=== PATIENT | male | born 2000 | race African-American/Black ===

== ENCOUNTER 2021-08-23 17:01 | Emergency (ER) | payer MEDICAID ==
[2021-08-23 18:51] LABS: Appearance CLEAR (CLEAR)
[2021-08-23 18:52] LABS: Bilirubin NEGATIVE (NEGATIVE); Dipstick done @ ? MAIN LAB; Glucose NEGATIVE (NEGATIVE); Ketones NEGATIVE (NEGATIVE); Nitrite NEGATIVE (NEGATIVE); Ph 5.5 (5-6); Protein,Urine Dip NEGATIVE (Negative); RBC NEGATIVE Ery/ul (0-5); Specific Gravity 1.025 (1.005-1.025); Urobilinogen 0.2 mg/dL (0-1)
[2021-08-23 18:53] LABS: Mucus SLIGHT /HPF (NEGATIVE)
[2021-08-23 18:54] LABS: Urine Cultured Indicated? NO
--- NOTE | 2021-08-23 19:48 | ERPHSYRPT ---
- History of Present Illness Time Seen by Provider: 08/23/21 17:55 Historian: patient Patient Subjective Stated Complaint: PT STATES HE HAS LOWER ABDOMINAL PRESSURE, CRAMPING. PT STATES HE HAS HAD DIARRHEA. PT HAD CT SCAN DONE AND LABS DONE AT [facility] LAST NIGHT. Triage Nursing Assessment: PT AMBULATORY, A&OX4. SKIN PWD. Physician History: Patient is a 20-year-old male presents to emergency department for evaluation of abdominal cramping. Patient was at [facility] yesterday for the same. Patient was diagnosed with epiploic appendagitis. Patient was discharged home with antispasmodic and Toradol. Patient states the pain is worse. No trauma. No fever. No nausea vomiting or diaphoresis. Symptoms are progressiv e. Symptoms are moderate in intensity. Palpation reproduces symptoms. No testicular pain. No penile discharge. Patient is otherwise healthy. He denies a history of the same. Patient voices no other complaints or concerns at this time. Timing/Duration: day(s) (3 days) Activities at Onset: none Quality: aching Abdominal Pain Onset Location: RUQ Pain Radiation: no radiation Severity of Pain-Max: moderate Severity of Pain-Current: mild Modifying Factors: Improves With: other (Pain worse with palpation and movement) Associated Symptoms: denies symptoms Previous symptoms: no prior history Allergies/Adverse Reactions: amphetamine [From Adderall] Adverse Reaction (Intermediate, Verified 08/23/21 17:58) Vomiting dextroamphetamine [From Adderall] Adverse Reaction (Intermediate, Verified 08/23/21 17:58) Vomiting Home Medications: Hyoscyamine Sulfate 0.125 mg [Anaspaz 0.125 mg] 1 tab PO DAILY 08/23/21 [History] Ketorolac Trometh 10 mg Tab [TORAdol 10 MG TABLET] 10 mg PO DAILY 08/23/21 [History] Hx Tetanus, Diphtheria Vaccination/Date Given: Yes Hx Influenza Vaccination/Date Given: No Hx Pneumococcal Vaccination/Date Given: No Immunizations Up to Date: Yes Travel Risk - International Travel Have you traveled outside of the country in past 3 weeks: No - Coronavirus Screening Are you exhibiting any of the following symptoms?: No Close contact with a COVID-19 positive Pt in past 14-21 Days: No - Vaccine Status Have you recieved a Covid-19 vaccination: Yes Band Builder: Moderna - Vaccination Dates Date of 2cond Vaccination (if applicable): UNK - Review of Systems Constitutional: No Symptoms, No Fever, No Chills Eyes: No Symptoms Ears, Nose, & Throat: No Symptoms Respiratory: No Symptoms, No Cough, No Dyspnea Cardiac: No Symptoms, No Chest Pain, No Edema, No Syncope Abdominal/Gastrointestinal: No Symptoms, No Abdominal Pain, No Nausea, No Vomiting, No Diarrhea Genitourinary Symptoms: No Symptoms, No Dysuria Musculoskeletal: No Symptoms, No Back Pain, No Neck Pain Skin: No Symptoms, No Rash Neurological: No Symptoms, No Dizziness, No Focal Weakness, No Sensory Changes Psychological: No Symptoms Endocrine: No Symptoms Hematologic/Lymphatic: No Symptoms Immunological/Allergic: No Symptoms All Other Systems: Reviewed and Negative - Past Medical History Pertinent Past Medical History: No Cardiac History: Other - Past Surgical History Past Surgical History: Yes Gastrointestinal: Appendectomy - Social History Smoking Status: Current every day smoker Exposure to second hand smoke: Yes Drug Use: marijuana Patient Lives Alone: No - Nursing Vital Signs Nursing Vital Signs: Initial Vital Signs Temperature 97.8 F 08/23/21 17:47 Pulse Rate 76 08/23/21 17:47 Respiratory Rate 18 08/23/21 17:47 Blood Pressure 115/61 08/23/21 17:47 O2 Sat by Pulse Oximetry 95 08/23/21 17:47 Pain Scale Pain Intensity 4 - Physical Exam General Appearance: no apparent distress, alert Eye Exam: PERRL/EOMI, eyes nml inspection Ears, Nose, Throat Exam: normal ENT inspection, pharynx normal, moist mucous membranes Neck Exam: normal inspection, non-tender, supple, full range of motion Respiratory Exam: normal breath sounds, lungs clear, airway intact, No respiratory distress Cardiovascular Exam: regular rate/rhythm, normal heart sounds, normal peripheral pulses Gastrointestinal/Abdomen Exam: soft, normal bowel sounds, No tenderness, No mass Back Exam: normal inspection, normal range of motion, No CVA tenderness, No vertebral tenderness Extremity Exam: normal inspection, normal range of motion, pelvis stable Neurologic Exam: alert, oriented x 3, cooperative, normal mood/affect, nml cerebellar function, sensation nml, No motor deficits Skin Exam: normal color, warm, dry Lymphatic Exam: No adenopathy SpO2 Interpretation: normal SpO2: 99 O2 Delivery: Room Air - Course Nursing assessment & vital signs reviewed: Yes - CT Exams Abdomen/Pelvis CT Interpretation: Tele-radiologist Report (No comps. CT performed at [facility] today. Results not available. Minimal diverticulitis. Otherwise negative CT abdomen pelvis.) Ordered Tests: Active Orders 24 hr Category Date Time Status IV Insertion STAT Care 08/23/21 19:51 Active ABDOMEN AND PELVIS W/0 CONTRAS [CT] Stat Exams 08/23/21 19:52 Taken CBC W DIFF Stat Lab 08/23/21 20:09 Completed CMP Stat Lab 08/23/21 20:09 Completed UA W/RFX CULTURE Stat Lab 08/23/21 18:23 Completed Medication Summary Generic Name Dose Route Start Last Admin Trade Name Freq PRN Reason Stop Dose Admin Metronidazole 500 mg in 100 mls @ 200 mls/hr 08/23/21 22:14 Flagyl 500 Mg Ivpb IV 08/23/21 22:43 STAT STA Levofloxacin/Dextrose 500 mg in 100 mls @ 100 mls/hr 08/23/21 22:14 Levofloxacin 500mg/100ml D5w IV 08/23/21 23:13 STAT STA Discontinued Medications Generic Name Dose Route Start Last Admin Trade Name Freq PRN Reason Stop Dose Admin Sodium Chloride 1,000 mls @ 999 mls/hr 08/23/21 19:51 08/23/21 21:20 Sodium Chloride 0.9% 1000 Ml IV 08/23/21 20:51 Infused .Q1H1M STA Infusion Sodium Chloride Confirm 08/23/21 19:58 Sodium Chloride 0.9% 1000 Ml Administered 08/23/21 19:59 Dose 1,000 mls @ ud .ROUTE .STK-MED ONE Morphine Sulfate 4 mg 08/23/21 19:51 08/23/21 19:59 Morphine Sulfate 4 Mg/Ml Injection IV 08/23/21 19:52 4 mg STAT ONE Administration Morphine Sulfate Confirm 08/23/21 19:57 Morphine Sulfate 4 Mg/Ml Injection Administered 08/23/21 19:58 Dose 4 mg .ROUTE .STK-MED ONE Ondansetron HCl 4 mg 08/23/21 19:51 08/23/21 19:59 Ondansetron Hcl 4 Mg/2 Ml Vial IV 08/23/21 19:52 4 mg STAT ONE Administration Ondansetron HCl Confirm 08/23/21 19:57 Ondansetron Hcl 4 Mg/2 Ml Vial Administered 08/23/21 19:58 Dose 4 mg .ROUTE .K-MED ONE Lab/Rad Data: Laboratory Result Diagrams 08/23/21 20:09 08/23/21 20:09 Laboratory Results 08/23/21 08/23/21 08/23/21 Range/Units 20:09 20:09 18:23 WBC 11.1 H (4.0-10.5) x10^3/uL RBC 4.97 (4.1-5.6) x10^6/uL Hgb 14.5 (12.5-18.0) g/dL Hct 44.9 (42-50) % MCV 90.3 (78-100) fL MCH 29.2 (26-32) pg MCHC 32.3 (32-36) g/dL RDW 12.7 (11.5-14.0) % Plt Count 260 (150-450) x10^3/uL MPV 9.3 (7.5-11.0) fL Gran % 64.0 (36.0-66.0) % Immature Gran % (Auto) 0.4 (0.00-0.4) % Nucleat RBC Rel Count 0.0 (0.00-0.1) % Eos # (Auto) 0.46 (0-0.5) x10^3/uL Immature Gran # (Auto) 0.04 H (0.00-0.03) x10^3u/L Absolute Lymphs (auto) 2.57 (1.0-4.6) x10^3/uL Absolute Monos (auto) 0.85 (0.0-1.3) x10^3/uL Absolute Nucleated RBC 0.00 (0.00-0.01) x10^3u/L Lymphocytes % 23.2 L (24.0-44.0) % Monocytes % 7.7 (0.0-12.0) % Eosinophils % 4.2 (0.00-5.0) % Basophils % 0.5 (0.0-0.4) % Absolute Granulocytes 7.11 H (1.4-6.9) x10^3/uL Basophils # 0.05 (0-0.4) x10^3/uL Sodium 140 (137-145) mmol/L Potassium 4.7 (3.5-5.1) mmol/L Chloride 107 (98-107) mmol/L Carbon Dioxide 28 (22-30) mmol/L Anion Gap 10.4 (5-15) MEQ/L BUN 18 (9-20) mg/dL Creatinine 1.00 (0.66-1.25) mg/dL Estimated GFR > 60.0 ML/MIN Glucose 86 (74-106) mg/dL Calcium 9.0 (8.4-10.2) mg/dL Total Bilirubin 0.70 (0.2-1.3) mg/dL AST 27 (17-59) U/L ALT 19 (0-50) U/L Alkaline Phosphatase 74 (38-126) U/L Serum Total Protein 7.3 (6.3-8.2) g/dL Albumin 4.3 (3.5-5.0) g/dL Urinalys Dipstick Clnc MAIN LAB Urine Color YELLOW (YELLOW) Urine Appearance CLEAR (CLEAR) Urine pH 5.5 (5-6) Ur Specific [place] 1.025 (1.005-1.025) POC Urine Protein Conf NEGATIVE (Negative) Urine Ketones NEGATIVE (NEGATIVE) Urine Nitrite NEGATIVE (NEGATIVE) Urine Bilirubin NEGATIVE (NEGATIVE) Urine Urobilinogen 0.2 (0-1) mg/dL Urine Leukocytes NEGATIVE (NEGATIVE) Urine WBC (Auto) NONE (0-5) /HPF Urine RBC (Auto) NONE (0-2) /HPF U Epithel Cells (Auto) NONE (FEW) /HPF Urine Bacteria (Auto) NONE (NEGATIVE) /HPF Urine RBC NEGATIVE (0-5) Manolo/ul Urine Mucus (Auto) SLIGHT (NEGATIVE) /HPF Ur Culture Indicated? NO Urine Glucose NEGATIVE (NEGATIVE) mg/dL - Progress Progress: improved Progress Note: Patient reassessed. Pain significantly improved after morphine. Patient states the pain is returning. Second dose of morphine administered. CT abdomen pelvis reveals mild diverticulitis. Otherwise negative CT abdomen pelvis. Patient received a dose of Levaquin and Flagyl in our ED. A prescription for Cipro and Flagyl was forwarded to patient's pharmacy. Patient agrees to follow- up with his nurse practitioner or Dr. Islas within 48 hours for evaluation. Significant other at bedside. They voiced no other complaints or concerns at this time. \Portions of this note were created with voice recognition technology. There may be grammatical, spelling, punctuation or sound alike errors 08/23/21 22:24 Counseled pt/family regarding: lab results, diagnosis, need for follow-up, rad results - Departure Departure Disposition: Home Clinical Impression: Diverticulitis Condition: Stable Critical Care Time: No Referrals: DOCTOR,NO FAMILY [Primary Care Provider] - Follow up/PCP as directed TOM ISLAS MD [ACTIVE STAFF] - Follow up/PCP as directed Additional Instructions: Discharge/Care Plan EUGENIE SIMONS was seen on 08/23/21 in the Emergency Room. The patient was counseled regarding Diagnosis,Lab results, Imaging studies, need for follow up and when to return to the Emergency Room. Prescriptions given: Discharge Note I have spoken with the patient and/or caregivers. I have explained the patient's condition, diagnosis and treatment plan based on the information available to me at this time. I have answered the patient's and/or caregiver's questions and addressed any concerns. The patient and/or caregivers have as good understanding of the patient's diagnosis, condition and treatment plan as can be expected at this point. The vital signs have been stable. The patient's condition is stable and appropriate for discharge from the emergency department. The patient will pursue further outpatient evaluation with the primary care physician or other designated or consulting physician as outlined in the discharge instructions. The patient and/or caregivers are agreeable to this plan of care and follow-up instructions have been explained in detail. The patient and/or caregivers have received these instruction. The patient/and or caregivers are aware that any significant change in condition or worsening of symptoms should prompt an immediate return to this or the closest emergency department or call 911. Prescriptions: Ciprofloxacin [Cipro 500 MG] 500 mg PO BID 7 Days #14 tablet Metronidazole 500 mg [Flagyl 500 MG] 500 mg PO TID 5 Days #15 tablet
[2021-08-23] MEDS ORDERED: Zofran 4 MG/2 ML VIAL IV ONE (19:51)
[2021-08-23] MEDS ORDERED: MORPHINE SULFATE 4 MG INJ IV ONE ×2 (19:51→22:19)
[2021-08-23] MEDS ORDERED: Sodium Chloride 0.9% 1000 ML 1,000 ML IV STA (19:51)
[2021-08-23] MEDS ORDERED: Zofran 4 MG/2 ML VIAL ONE (19:57)
[2021-08-23] MEDS ORDERED: MORPHINE SULFATE 4 MG INJ ONE ×2 (19:57→22:22)
[2021-08-23] MEDS ORDERED: Sodium Chloride 0.9% 1000 ML 1,000 ML ONE (19:58)
[2021-08-23 20:12] LABS: Absolute Neutrophil Ct (ANC) 7.11 x10^3/uL (1.4-6.9); Basophil (Absolute #) 0.05 x10^3/uL (0-0.4); Eosinophil % 4.2 % (0.00-5.0); Eosinophil (Absolute #) 0.46 x10^3/uL (0-0.5); Hematocrit 44.9 % (42-50); Hemoglobin 14.5 g/dL (12.5-18.0); Lymphocyte (Absolute #) 2.57 x10^3/uL (1.0-4.6); Lymphocytes % 23.2 % (24.0-44.0); Mean Cell Volume 90.3 fL (78-100); Mean Corpuscular Hemoglobin 29.2 pg (26-32); Mean Corpuscular Hgb Concent. 32.3 g/dL (32-36); Mean Platelet Volume 9.3 fL (7.5-11.0); Monocyte (Absolute #) 0.85 x10^3/uL (0.0-1.3); Monocytes % 7.7 % (0.0-12.0); Platelet Count 260 x10^3/uL (150-450); Red Blood Count 4.97 x10^6/uL (4.1-5.6); Red Cell Distribution Width 12.7 % (11.5-14.0); White Blood Count 11.1 x10^3/uL (4.0-10.5)
[2021-08-23 20:25] LABS: ALBUMIN 4.3 g/dL (3.5-5.0); ALKALINE PHOSPHATASE 74 U/L (38-126); ANION GAP 10.4 MEQ/L (5-15); BLOOD UREA NITROGEN 18 mg/dL (9-20); CHLORIDE 107 mmol/L (98-107); Carbon Dioxide 28 mmol/L (22-30); EST GLOMERULAR FILTRATION RATE > 60.0 ML/MIN; Glucose 86 mg/dL (74-106); Potassium 4.7 mmol/L (3.5-5.1); SGOT/AST 27 U/L (17-59); SGPT/ALT 19 U/L (0-50); SODIUM 140 mmol/L (137-145); Total Protein 7.3 g/dL (6.3-8.2)
[2021-08-23] MEDS ORDERED: FLAGYL 500 MG IVPB 500 MG/100 ML BAG IV STA (22:14)
[2021-08-23] MEDS ORDERED: Levofloxacin 500MG/100ML D5W 500 MG/100 ML BAG IV STA (22:14)
[2021-08-23] MEDS ORDERED: Levofloxacin 500MG/100ML D5W 500 MG/100 ML BAG IV ONE (22:16)
[2021-08-23] MEDS ORDERED: FLAGYL 500 MG IVPB 500 MG/100 ML BAG IV ONE (22:16)
[2021-08-23] MEDS ORDERED: NORCO 5/325 MG PO ONE (22:26)
[2021-08-23] MEDS ORDERED: NORCO 5/325 MG ONE (22:36)
[2021-08-23 23:25] VITALS: BP 126/72; PULSE 67; O2SAT 98
--- NOTE | 2021-08-24 08:53 | XRAY ---
Indication: Abdomen/pubic pain. Multiple contiguous images obtained through the abdomen and pelvis without contrast. Comparison: None. Patient had a CT abdomen/pelvis at [facility] earlier in the day. Images not available at time of interpretation. Lung bases clear. Heart not enlarged. Noncontrasted stomach and bowel loops appear nonobstructed. Previous appendectomy. Minimal colonic diverticulosis without diverticulitis. No free fluid/air. Remaining liver, gallbladder, pancreas, spleen, adrenal glands, kidneys, ureters, bladder, and aorta are unremarkable for noncontrast exam. Osseous structures intact. No ventral or inguinal hernias. Impression: 1. Colonic diverticulosis without diverticulitis. 2. Remaining CT abdomen/pelvis without contrast exam is negative.
== END 2021-08-23 23:26 | disposition home or self-care (01) ==
LOC: ED 17:01
DX: K57.92 Diverticulitis of intestine, part unspecified, without perforation or abscess without bleeding (principal); R10.11 Right upper quadrant pain; Z72.0 Tobacco use
CPT/HCPCS: 36000; 36415; 74176; 80053; 81015; 85025; 96360; 96365; 96368; 96374; 96375; 96376; 99284; J1956; J2270; J2405; A9270-GY